=== PATIENT | female | born 2000 | race Caucasian/White ===

== ENCOUNTER 2022-07-23 23:35 | Emergency (ER) | payer OTHER ==
[~2022-07-23] VITALS: Ht 157.5 cm; Wt 68.2 kg
[2022-07-24 02:00] VITALS: BP 128/91
== END 2022-07-24 02:02 | disposition home or self-care (01) ==
LOC: EMS 23:35
DX: S63.602A Unspecified sprain of left thumb, initial encounter (principal); X50.1XXA Overexertion from prolonged static or awkward postures, initial encounter; Y93.89 Activity, other specified; Y92.89 Other specified places as the place of occurrence of the external cause; Y99.0 Civilian activity done for income or pay
CPT/HCPCS: 99283

== ENCOUNTER 2023-05-12 11:09 | Emergency (ER) | payer OTHER ==
[~2023-05-12] VITALS: Ht 157.5 cm; Wt 63.6 kg
[2023-05-12 11:14] VITALS: TEMP 97.9
[2023-05-12 15:53] LABS: APPEARANCE,URINE HAZY (CLEAR); BILIRUBIN,URINE NEGATIVE (NEGATIVE); COLOR,URINE LIGHT YELLOW (YELLOW); GLUCOSE, URINE (UA) NEGATIVE (NEGATIVE); LEUKOCYTE ESTERASE ,URINE SMALL (NEGATIVE); NITRATE,URINE NEGATIVE (NEGATIVE); OCCULT BLOOD,URINE NEGATIVE (NEGATIVE); PROTEIN,URINE TRACE mg/dL (NEGATIVE); SPECIFIC GRAVITIY, URINE 1.022 (1.003-1.030); UROBILINOGEN,URINE <=1.0 mg/dL (<=1.0)
[2023-05-12 15:56] LABS: HCG,QUAL URINE NEGATIVE (NEGATIVE)
[2023-05-12 16:05] LABS: BACTERIA,URINE Few /HPF (None Seen); RBC,URINE None Seen /HPF (0-2); SQUAMOUS EPITHELIAL CELL,UR Few /LPF (None Seen); WBC,URINE 0-2 /HPF (0-5)
[2023-05-12] MEDS ORDERED: CEPH-558 PO (16:18)
[2023-05-12 16:36] VITALS: BP 128/74; PULSE 74; RESP 16
== END 2023-05-12 16:36 | disposition home or self-care (01) ==
LOC: EMS 11:09
DX: N39.0 Urinary tract infection, site not specified (principal)
CPT/HCPCS: 76856; 81001; 84703; 99284; Z7502

== ENCOUNTER → 2024-11-28 | Emergency (ER) | payer OTHER ==
[~2024-11-28] VITALS: Ht 160 cm; Wt 72.3 kg
[~2024-11-28] MED LIST: AMOX-457 PO; CEPH-558 PO
[2024-11-28 18:25] LABS: PLATELET COUNT (AUTO) 418 K/uL (150-450); RED BLOOD CELL COUNT(AUTO) 4.45 MIL/uL (4.00-5.20); RED CELL DISTRIBUTION WIDTH 13.0 % (11.5-14.5); WHITE BLOOD COUNT (AUTO) 10.2 K/uL (4.5-11.0)
[2024-11-28 18:32] LABS: CALCIUM, TOTAL 9.4 mg/dL (8.8-10.5); CREATININE 0.75 mg/dL (0.60-1.30); GLOMERULAR FILTR. RATE CALC > 60 mL/min (>60); GLUCOSE,RANDOM 99 mg/dL (70-110); SODIUM SERUM 141 mmol/L (136-145); UREA NITROGEN, BLOOD 12 mg/dL (7-18)
[2024-11-28 18:35] LABS: C-REACTIVE PROTEIN QUANT 0.17 mg/dL (0.00-0.30)
[2024-11-28] MEDS: ACETAMINOPHEN 500 MG TABLET PO ONE (18:55)
[2024-11-28] MEDS: SODIUM CHLORIDE 0.9% 1,000 ML IV ONE (18:56)
[2024-11-28] MEDS: KETOROLAC TROMETHAMINE 30 MG/ML VIAL IVP ONE (18:56)
[2024-11-28 19:12] LABS: APPEARANCE,URINE CLEAR (CLEAR); GLUCOSE, URINE (UA) NEGATIVE (NEGATIVE); LEUKOCYTE ESTERASE ,URINE TRACE (NEGATIVE); NITRATE,URINE NEGATIVE (NEGATIVE); OCCULT BLOOD,URINE TRACE (NEGATIVE); SPECIFIC GRAVITIY, URINE 1.031 (1.003-1.030)
[2024-11-28 19:26] LABS: SQUAMOUS EPITHELIAL CELL,UR Few /LPF (None Seen)
[2024-11-28 20:18] LABS: INFLUENZA A-RTPCR,COMBO NEGATIVE (NEGATIVE); INFLUENZA B-RTPCR,COMBO NEGATIVE (NEGATIVE); RESPIRATORY SYNCYTIAL VRS-PCR NEGATIVE (NEGATIVE); SARS COVID19 RTPCR, COMBO NEGATIVE (NEGATIVE)
[2024-11-28 20:52] VITALS: BP 133/74; PULSE 78; RESP 17; TEMP 97.9; O2SAT 98
== END | disposition still patient (30) ==
LOC: EMS 17:40
DX: J01.90 Acute sinusitis, unspecified (principal); H04.209 Unspecified epiphora, unspecified side; R05.9 Cough, unspecified; R51.9 Headache, unspecified; Z20.822 Contact with and (suspected) exposure to COVID-19
CPT/HCPCS: 99284; 96374; 87637; 71046; 96361; 80048; 81001; 84703; 85025; 86140; 87430; 36415; 84145; J1885; J7030